=== PATIENT | male | born 1975 | race Caucasian/White ===

== ENCOUNTER 2022-02-22 12:21 | Emergency (ER) | payer OTHER ==
[2022-02-22] MEDS ORDERED: PERCOCET 5-3251 EACH PO (13:34)
== END 2022-02-22 13:45 | disposition home or self-care (01) ==
LOC: FER 12:21
DX: S83.91XA Sprain of unspecified site of right knee, initial encounter (principal); W01.0XXA Fall on same level from slipping, tripping and stumbling without subsequent striking against object, initial encounter; X50.1XXA Overexertion from prolonged static or awkward postures, initial encounter
CPT/HCPCS: 73564

== ENCOUNTER 2022-03-14 09:35 | Emergency (ER) | payer OTHER ==
[~2022-03-14 09:35] MED LIST: PERCOCET 5-3251 EACH PO
[2022-03-14] MEDS ORDERED: XARELTO15 MG PO (11:45)
== END 2022-03-14 12:09 | disposition home or self-care (01) ==
LOC: FER 09:35
DX: I82.411 Acute embolism and thrombosis of right femoral vein (principal); I82.451 Acute embolism and thrombosis of right peroneal vein; F17.290 Nicotine dependence, other tobacco product, uncomplicated